=== PATIENT | female | born 2000 ===

== ENCOUNTER 2024-08-01 14:50 | Outpatient (CLI) | payer OTHER | END 2024-08-01 14:51 | disposition home or self-care (01) | LOC: PRENATAL 14:50 | PROVIDERS: ATTEND Obstetrics & Gynecology Maternal & Fetal Medicine | DX: O44.00 Complete placenta previa NOS or without hemorrhage, unspecified trimester (principal); Z3A.21 21 weeks gestation of pregnancy ==

== ENCOUNTER 2024-09-08 12:11 | Outpatient (CLI) | payer OTHER | END 2024-09-08 12:12 | disposition home or self-care (01) | LOC: PRENATAL 12:11 | PROVIDERS: ATTEND Obstetrics & Gynecology Maternal & Fetal Medicine | DX: O26.849 Uterine size-date discrepancy, unspecified trimester (principal); O36.8199 Decreased fetal movements, unspecified trimester, other fetus; Z3A.27 27 weeks gestation of pregnancy ==